=== PATIENT | female | born 1965 | race Caucasian/White ===

== ENCOUNTER 2017-02-03 19:55 | Emergency (ER) | payer BC ==
[2017-02-03 20:49] VITALS: BP 154/73; PULSE 100; RESP 18; TEMP 98
[2017-02-03] MEDS ORDERED: IBUPROFEN 600 MG TAB PO STA (20:49)
[2017-02-03] MEDS ORDERED: DIPH,PERTUS(ACELL)TETVAC-LF 0.5 ML VIAL IM ONE (20:50)
[2017-02-03] MEDS ORDERED: TOPICAL SKIN ADHESIVE 1 EACH AMP TOPICAL ONE (20:52)
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
--- NOTE | 2017-02-03 21:17 | XR ---
Exam: Left tibia and fibula. HISTORY: Pain. 4 views of the left tibia and fibula were obtained. COMPARISON: None FINDINGS: No acute fracture or subluxation is identified. There is no radiopaque foreign body identified. There are no osteolytic or osteoblastic lesions. There is an inferior and posterior calcaneal enthesophyte . Minimal soft tissue swelling anterior to the proximal tibia is noted. IMPRESSION: Soft tissue swelling anterior to the proximal tibia is noted.
== END 2017-02-03 22:08 | disposition home or self-care (01) ==
LOC: EC 19:55
DX: S81.812A Laceration without foreign body, left lower leg, initial encounter (principal); S80.12XA Contusion of left lower leg, initial encounter; Z23 Encounter for immunization; E11.9 Type 2 diabetes mellitus without complications; K21.9 Gastro-esophageal reflux disease without esophagitis; E07.9 Disorder of thyroid, unspecified; Z79.84 Long term (current) use of oral hypoglycemic drugs; Z79.899 Other long term (current) drug therapy; Z88.0 Allergy status to penicillin; Z88.1 Allergy status to other antibiotic agents; Z88.2 Allergy status to sulfonamides; Z91.09 Other allergy status, other than to drugs and biological substances; W22.8XXA Striking against or struck by other objects, initial encounter; Y93.39 Activity, other involving climbing, rappelling and jumping off
CPT/HCPCS: 12001; 90471; 90715; 99283

== ENCOUNTER → 2018-04-08 | Outpatient (CLI) | payer BC ==
[2018-04-08 07:48] LABS: HCT 45.9 % (34.0-46.0); MCH 30.4 pg (25.0-35.0); MCHC 32.6 g/dL (31.0-37.0); Mean Platelet Volume 7.8; Platelet Count 181 k/uL (150-450); RBC 4.93 m/uL (3.80-5.40); RDW 12.8 % (11.5-15.5); WBC 7.7 k/uL (3.8-10.6)
[2018-04-08 07:57] LABS: Partial Thromboplastin Time 24.6 sec (22.0-30.0); Prothrombin Time 9.9 sec (9.0-12.0)
[2018-04-08 08:21] LABS: ALT 25 U/L (9-52); AST 22 U/L (14-36); Albumin 3.8 g/dL (3.5-5.0); Alkaline Phosphatase 62 U/L (38-126); Anion Gap 11 mmol/L; Blood Urea Nitrogen 13 mg/dL (7-17); Calcium 9.2 mg/dL (8.4-10.2); Carbon Dioxide 19 mmol/L (22-30); Chloride 108 mmol/L (98-107); Cholesterol 324 mg/dL (<200); Glucose 162 mg/dL (74-99); HDL Cholesterol 53 mg/dL (40-60); Magnesium 1.7 mg/dL (1.6-2.3); Phosphorus 3.5 mg/dL (2.5-4.5); Potassium 4.1 mmol/L (3.5-5.1); Sodium 138 mmol/L (137-145); Total Bilirubin 0.8 mg/dL (0.2-1.3); Triglycerides 502 mg/dL (<150)
[2018-04-08 16:25] LABS: Iron Saturation 39.12 (12.00-45.00)
[2018-04-08 16:33] LABS: Vitamin D 25 Hydroxy 24.4 ng/mL (30.0-100.0)
[2018-04-08 16:38] LABS: Parathyroid Hormone Intact 37.5 pg/mL (14.0-72.0)
[2018-04-08 16:39] LABS: Folate, Serum >24.0 ng/mL
[2018-04-08 19:58] LABS: Hemoglobin A1C 6.8 % (4.0-6.0)
[2018-04-09 14:27] LABS: Zinc, Serum 79 ug/dL (60-130)
[2018-04-10 06:28] LABS: Vitamin A 70 ug/dL (38-106)
== END | disposition home or self-care (01) ==
LOC: LABWHC1 07:17
PROVIDERS: ATTEND Surgery Plastic and Reconstructive Surgery
DX: E66.01 Morbid (severe) obesity due to excess calories (principal); E21.1 Secondary hyperparathyroidism, not elsewhere classified; E89.1 Postprocedural hypoinsulinemia; D50.9 Iron deficiency anemia, unspecified; K90.9 Intestinal malabsorption, unspecified; E55.9 Vitamin D deficiency, unspecified; K76.9 Liver disease, unspecified; N19 Unspecified kidney failure; K50.90 Crohn's disease, unspecified, without complications
CPT/HCPCS: 36415; 80053; 80061; 82306; 82525; 82607; 82728; 82746; 83036; 83540; 83550; 83735; 83970; 84100; 84134; 84255; 84425; 84443; 84590; 84630; 85027; 85610; 85730

== ENCOUNTER → 2018-04-30 | Outpatient (CLI) | payer BC ==
[2018-04-30 16:14] VITALS: BP 120/65; PULSE 99; RESP 16; TEMP 97.8; BMI 35.3
--- NOTE | 2018-04-30 16:16 | P.PN ---
Subjective Progress Note Date: 04/30/18 04/30/2018 HPI: She comes in fatigued and exhausted. She has lost weight since her last visit 2 weeks. She has much stress in her life. She is on thyroid medications. She is on wearable MVI. She has decreased energy including the gym. No reports of abdominal pain. Her highest was 326 pounds. She reports worsening GERD. ABDOMEN: Panniculitis. Nontender. 5 cm of pannus, 10 - 15 pounds of skin PLAN: 1. Nystatin powder 2. Panniculectomy packet advised 3. Labs reviewed with elevated Selenium and cholesterol panel. 4. Follow-up 3 months, Jul 2018 5. Recommend EGD for worsening GERD. DATE OF SERVICE: 07/07/2015 CHIEF COMPLAINT: Follow-up sleeve gastrectomy. HISTORY OF PRESENT ILLNESS: [place] Kirk is a very pleasant 50-year-old female who had a sleeve gastrectomy now over 2 years ago. Her heaviest in the program was 326 pounds. Her body mass index was 51 for her height of 5 feet 7 inches, Today she comes in weighing 235 pounds. She has lost 91 pounds. Her percent excess weight loss is 52% after 2 years. Since a year ago she has lost another 7 pounds. Her BMI point reduction is 14.1. Current body mass index is 36.9. She is on increased medications whereby she is now taking metformin including cholesterol medications. She reports moderate panniculitis of the abdomen. She does have increased energy. She does have heartburn as well. She has intolerance to meat particularly pork. Now she presents for her approximate 2-year followup. PAST MEDICAL HISTORY: 1. Diabetes type 2. 2. Dyslipidemia. 3. Gastroesophageal reflux disease. 4. Hypothyroidism. 5. Hypertension. 6. Osteoarthritis. PAST SURGICAL HISTORY: 1. Upper endoscopy. 2. Status post sleeve gastrectomy. MEDICATIONS: 1. Metformin. 2. Ambien. 3. Aldactone. 4. Seasonal. 5. Zantac. 6. Victoza. 7. Cytomel. 8. TriCor. 9. Calcium citrate with vitamin D. 10. Lipitor. ALLERGIES: 1. PENICILLIN. 2. SULFA. 3. CIPRO. 4. LEVAQUIN. SOCIAL HISTORY: No active tobacco use. FAMILY HISTORY: Family history of morbid obesity. REVIEW OF SYSTEMS: CONSTITUTIONAL: Heaviest weight of 326 pounds. Highest body mass is 61. He did body weight of 153 pounds. Total weight loss of 91 pounds. Percent excess weight loss of 52% after 2 years. She has lost another 7 pounds in one year. Her BMI point reduction of 14.1. Present body mass index of 36.9. GASTROINTESTINAL: Reports gastroesophageal reflux disease. Has intolerance to pork. No reports of diarrhea or constipation. ENDOCRINE: History of diabetes including thyroid disorder. She reports increase need for hypoglycemic medications as metformin has been added. CARDIOVASCULAR: History of dyslipidemia with increased medication. MUSCULOSKELETAL: No reports of increased joint pain or lower back pain. HEENT: Denies any troubles with vision or hearing. RESPIRATORY: History of obstructive sleep apnea. No reports of pneumonia. NEURO: No reports of headaches or seizures. PSYCHIATRY: No reports of depression or suicidal ideation. PHYSICAL EXAM: VITAL SIGNS: 97.9, 91, 12, 129/63, 5 feet 7 inches, 235 pounds. Body mass index of 36.9. GENERAL: Well-developed, pleasant female in no acute distress. ABDOMEN: Soft, nontender. No palpable incisional hernias. HEENT: No scleral icterus. Extraocular movements grossly intact. Moist buccal mucosa. NECK: Supple without lymphadenopathy. CHEST: Nonlabored respirations. Equal bilateral excursions. CARDIOVASCULAR: Regular rate and rhythm. MUSCULOSKELETAL: No clubbing, cyanosis or edema. NEURO: No focal or lateralizing signs. Labs were reviewed. Platelet count was low at 136. A glucose was elevated at 158. Hemoglobin A1c was 7.4 less than 8.1 from her initial assessment. Triglycerides elevated at 223. Cholesterol elevated at 232. LDL elevated at 133. ASSESSMENT: 1. Morbid obesity due to exogenous chocked intake. 2. Body mass index reduced from 51 to 36.9. 3. Status post sleeve gastrectomy. 4. Diabetes type 2. 5. Hyperdyslipidemia. 6. Obstructive sleep apnea, improved. 7. Hypertension, improved. 8. Gastroesophageal reflux disease, stable. PLAN: 1. After 2 years she has done extremely well still losing weight. Her percent excess weight loss is now 52%. 2. She still reports gastroesophageal reflux disease and may continue with Prilosec indefinitely. 3. Recommended completion of her bariatric metabolic panel. 4. She has done extremely well, whereby follow up at least on a yearly basis.
== END | disposition home or self-care (01) ==
LOC: BARWHC3 15:12
PROVIDERS: ATTEND Surgery Plastic and Reconstructive Surgery
DX: Z09 Encounter for follow-up examination after completed treatment for conditions other than malignant neoplasm (principal); E66.01 Morbid (severe) obesity due to excess calories; G47.33 Obstructive sleep apnea (adult) (pediatric); K21.9 Gastro-esophageal reflux disease without esophagitis; M79.3 Panniculitis, unspecified; R53.83 Other fatigue; R63.4 Abnormal weight loss; E11.9 Type 2 diabetes mellitus without complications; E78.5 Hyperlipidemia, unspecified; E03.9 Hypothyroidism, unspecified; I10 Essential (primary) hypertension; M19.90 Unspecified osteoarthritis, unspecified site; Z98.84 Bariatric surgery status; Z79.84 Long term (current) use of oral hypoglycemic drugs; Z79.899 Other long term (current) drug therapy; Z88.0 Allergy status to penicillin; Z88.2 Allergy status to sulfonamides; Z88.1 Allergy status to other antibiotic agents; Z68.36 Body mass index [BMI] 36.0-36.9, adult
CPT/HCPCS: 99211

== ENCOUNTER → 2018-08-16 | Outpatient (CLI) | payer BC ==
[2018-08-16 17:26] LABS: Progesterone <0.2 ng/mL
== END | disposition home or self-care (01) ==
LOC: LABWHC1 08:58
PROVIDERS: ATTEND Internal Medicine
DX: L65.9 Nonscarring hair loss, unspecified (principal); E03.9 Hypothyroidism, unspecified
CPT/HCPCS: 36415; 82670; 83001; 83002; 84144; 84403; 84443

== ENCOUNTER → 2019-05-14 | Outpatient (CLI) | payer BC ==
--- NOTE | 2019-05-18 10:40 | MM ---
Reason for exam: screening (asymptomatic). Last mammogram was performed 4 years and 9 months ago. History: Patient is nulliparous. Took hormonal contraceptives for 14 years 10 months. Physical Findings: A clinical breast exam by your physician is recommended on an annual basis and results should be correlated with mammographic findings. MG Screening Mammo w CAD Bilateral CC and MLO view(s) were taken. Prior study comparison: August 06, 2014, bilateral MG screening mammo w CAD. September 19, 2012, bilateral digital screening mammo w/CAD. There are scattered fibroglandular densities. No suspicious abnormality. No significant changes when compared with prior studies. ASSESSMENT: Negative, BI-RAD 1 RECOMMENDATION: Routine screening mammogram of both breasts in 1 year.
== END | disposition home or self-care (01) ==
LOC: RADMAMWWP 16:53
PROVIDERS: ATTEND Internal Medicine
DX: Z12.31 Encounter for screening mammogram for malignant neoplasm of breast (principal)
CPT/HCPCS: 77067

== ENCOUNTER → 2020-04-11 | Outpatient (CLI) | payer BC ==
[2020-04-11 11:50] LABS: Basophils % (A) 0 %; Eosinophils % (A) 1 %; HCT 46.6 % (34.0-46.0); HGB 15.2 gm/dL (11.4-16.0); Lymphocytes # (A) 3.3 k/uL (1.0-4.8); Lymphocytes % (A) 38 %; MCH 31.3 pg (25.0-35.0); MCHC 32.7 g/dL (31.0-37.0); MCV 95.6 fL (80.0-100.0); Mean Platelet Volume 10.2; Monocytes # (A) 0.5 k/uL (0-1.0); Monocytes % (A) 5 %; Neutrophils # (A) 4.7 k/uL (1.3-7.7); Neutrophils % (A) 54 %; Platelet Count 135 k/uL (150-450); RBC 4.87 m/uL (3.80-5.40); RDW 12.8 % (11.5-15.5); WBC 8.6 k/uL (3.8-10.6)
== END | disposition home or self-care (01) ==
LOC: LABPAT 10:15
PROVIDERS: ATTEND Obstetrics & Gynecology
DX: Z01.818 Encounter for other preprocedural examination (principal)
CPT/HCPCS: 36415; 85025; 93005

== ENCOUNTER 2020-04-18 06:17 | Day surgery (SDC) | payer BC, OTHER ==
[2020-04-12 15:32] VITALS: BMI 37.5
[~2020-04-18 06:17] MED LIST: DEXAMETHASONE SOD PHOSPHATE 10 MG/ML 1 ML VIAL IV ONE; HYDROmorphone 0.5 MG/0.5 ML SYRINGE IVP PRN; LACTATED RINGERS 1,000 ML IV SCH; MIDAZOLAM 2 MG/2 ML VIAL IV PRN; ONDANSETRON 4 MG/2 ML VIAL IVP ONE; Pre Op ABX Message 1 EACH MISC MISCELLANE ONE; SCOPOLAMINE 1.5MG/72HR PATCH TRANSDERM ONE
[2020-04-18 07:05] LABS: Glucose,Whole Blood 157 mg/dL (75-99)
[2020-04-18 07:18] LABS: African American GFR (CKD) >90 (>60 ml/min/1.73 sqM); Anion Gap 5 mmol/L; Blood Urea Nitrogen 12 mg/dL (7-17); Calcium 8.8 mg/dL (8.4-10.2); Carbon Dioxide 24 mmol/L (22-30); Chloride 106 mmol/L (98-107); Glucose 168 mg/dL (74-99); Non-African American GFR(CKD) >90 (>60 ml/min/1.73 sqM); Sodium 135 mmol/L (137-145)
[2020-04-18 07:37] LABS: Potassium 4.3 mmol/L (3.5-5.1)
[2020-04-18] MEDS ORDERED: SUCCINYLCHOLINE CHLORIDE 100 MG/5 ML SYR IV ONE (07:37)
[2020-04-18] MEDS ORDERED: LIDOCAINE 1% INJ 10MG/ML (20 ML MDV) ONE (07:37)
[2020-04-18] MEDS ORDERED: PROPOFOL 10 MG/ML 20 ML VIAL IV ONE (07:37)
[2020-04-18] MEDS ORDERED: fentaNYL (PF) 50 MCG/ML 2 ML AMP ONE (07:37)
[2020-04-18] MEDS ORDERED: MIDAZOLAM 2 MG/2 ML VIAL ONE (07:37)
--- NOTE | 2020-04-18 08:18 | P.HPOB ---
History of Present Illness H&P Date: 04/18/20 Chief Complaint: Dysfunctional uterine bleeding [place] is a 54-year-old female with heavy vaginal bleeding. She relates that she has bleeding every month for approximately 10 days and is significantly impacting her lifestyle. Ultrasound did not reveal any gross findings. We did discuss at length risks of separate procedures with a D&C and hysteroscopy versus D&C with hysteroscopy NovaSure. She would prefer to when have one surgery she is very concerned that anesthetic and with her multiple medical ALLERGIES a decision to move forward with an ablation on this procedure was done. She is aware that there is some risk of hyperplasia and/or cancer that may require surgical intervention down the road, but she is adamant that she would like NovaSure done at the same time as her D&C. Other risks and benefits were reviewed with patient in detail and all questions were answered for her prior to proceeding to the operative room. Past Medical History Past Medical History: Diabetes Mellitus, GERD/Reflux, Pneumonia, Thyroid Disor ortega Additional Past Medical History / Comment(s): Hepatitis with Johnson previously .RETAINS FLUID IN LEGS AND ANKLES , History of Any Multi-Drug Resistant Organisms: None Reported Past Surgical History: Bariatric Surgery, Cholecystectomy, Tonsillectomy Additional Past Surgical History / Comment(s): Sleeve 06/08/13. Colonoscopy , laparoscopy, D&C. Past Anesthesia/Blood Transfusion Reactions: Motion Sickness, Postoperative Nausea & Vomiting (PONV) Smoking Status: Never smoker - Past Family History Mother Family Medical History: No Reported History Medications and Allergies Home Medications Medication Instructions Recorded Confirmed Type Spironolactone [Aldactone] 25 mg PO DAILY #30 tablet 03/11/14 04/18/20 Rx Dapagliflozin Propanediol [Farxiga] 5 mg PO DAILY 05/06/18 04/18/20 History Pravastatin Sodium [Pravachol] 20 mg PO DAILY 04/12/20 04/18/20 History RX: Nystatin 100,000 Unit/gm Powd 1 applic TOPICAL BID PRN 04/12/20 04/18/20 History [Mycostatin Powder] Semaglutide [Ozempic] 1 mg SQ MORIN 04/12/20 04/18/20 History Thyroid,Pork [Sugar Mill Worker Thyroid] 30 mg PO DAILY 04/12/20 04/18/20 History clonazePAM [KlonoPIN] 1 mg PO HS 04/12/20 04/18/20 History Allergies Allergy/AdvReac Type Severity Reaction Status Date / Time amoxicillin [Amoxicillin] Allergy Swelling Verified 04/18/20 06:44 ciprofloxacin [From Cipro] Allergy Anaphylaxis Verified 04/18/20 06:44 ciprofloxacin HCl Allergy Anaphylaxis Verified 04/18/20 06:44 [From Cipro] Penicillins Allergy Swelling Verified 04/18/20 06:44 Sulfa (Sulfonamide Allergy Rash/Hives Verified 04/18/20 06:44 Antibiotics) levofloxacin [From Levaquin] AdvReac Severe Anaphylaxis Verified 04/18/20 06:44 mold Allergy Cough Uncoded 04/18/20 06:44 Exam Osteopathic Statement: *. No significant issues noted on an osteopathic structural exam other than those noted in the History and Physical/Consult. Vital Signs Temp Pulse Resp BP Pulse Ox 04/18/20 06:51 98.2 F 86 16 122/61 96 Intake and Output 04/17/20 04/18/20 04/18/20 22:59 06:59 14:59 Intake Total 300 Output Total 3 Balance 297 Intake: IV 300 Output: Estimated Blood Loss 3 Other: Weight 111.357 kg - OBG Physical Exam Breast: both: normal (no masses) Abdomen: bowel sounds normal, no diffuse tenderness, no bruit present, no guarding noted, no hepatomegaly, no splenomegaly, no mass Vulva: both: normal Vagina: normal moisture, no discharge Cervix: no lesion, no discharge Uterus: normal size, normal contour Adnexa: both: normal Anus/Rectum: normal perianal skin, no rectal mass, no hemorrhoids, heme negative Results Result Diagrams: 04/18/20 07:02 Abnormal Lab Results - Last 24 Hours (Table) 04/18/20 04/18/20 Range/Units 07:00 07:02 Sodium 135 L (137-145) mmol/L Glucose 168 H (74-99) mg/dL POC Glucose (mg/dL) 157 H (75-99) mg/dL
--- NOTE | 2020-04-18 08:20 | P.OP ---
Date of Procedure: 04/18/20 Preoperative Diagnosis: Dysfunctional uterine bleeding Postoperative Diagnosis: Same Procedure(s) Performed: D&C with hysteroscopy and NovaSure Anesthesia: BRITTNI Surgeon: Bashir Nguyen Estimated Blood Loss (ml): 3 Pathology: other (Uterine curettings) Condition: stable Disposition: same day Operative Findings: Pathology pending Description of Procedure: Patient was taken to the operating suite where a general anesthetic was found be adequate. She was prepped and draped in normal sterile fashion and placed in the dorsal lithotomy position. Initially a weighted speculum was inserted in vagina and anterior lip of cervix identified and grasped with a Allis clamp. Once this was completed cervix was fully dilated. Camera was then inserted. Initially it appeared that she had a septated uterus, however after curettage was performed that septation did not appear to be present in the back wall of the uterus was clearly identified. Therefore once tissue was collected and sent to pathology. NovaSure system was inserted. With a length of 4 and a width of 2.5 it passes patency test was enabled and didn't burn for 67 seconds. At conclusion the burn camera was reinserted following removal of the NovaSure system good burn was noted. All incidents were then removed. Sponge, lap, needle counts were all correct 2. Patient was then taken to the recovery room in stable and satisfactory condition. Plan - Discharge Summary Discharge Rx Participant: Yes New Discharge Prescriptions: No Action Spironolactone [Aldactone] 25 mg PO DAILY #30 tablet Dapagliflozin Propanediol [Farxiga] 5 mg PO DAILY RX: Nystatin 100,000 Unit/gm Powd [Mycostatin Powder] 1 applic TOPICAL BID PRN PRN Reason: Rash clonazePAM [KlonoPIN] 1 mg PO HS Pravastatin Sodium [Pravachol] 20 mg PO DAILY Thyroid,Pork [Child Care Aide Thyroid] 30 mg PO DAILY Semaglutide [Ozempic] 1 mg SQ MORIN Discharge Medication List Spironolactone [Aldactone] 25 mg PO DAILY #30 tablet 03/11/14 [Rx] Dapagliflozin Propanediol [Farxiga] 5 mg PO DAILY 05/06/18 [History] Pravastatin Sodium [Pravachol] 20 mg PO DAILY 04/12/20 [History] RX: Nystatin 100,000 Unit/gm Powd [Mycostatin Powder] 1 applic TOPICAL BID PRN 04/12/20 [History] Semaglutide [Ozempic] 1 mg SQ MORIN 04/12/20 [History] Thyroid,Pork [Child Care Aide Thyroid] 30 mg PO DAILY 04/12/20 [History] clonazePAM [KlonoPIN] 1 mg PO HS 04/12/20 [History]
[2020-04-18 08:21] VITALS: TEMP 97.9
[2020-04-18 08:31] LABS: Glucose,Whole Blood 206 mg/dL (75-99)
[2020-04-18 08:33] VITALS: RESP 16
[2020-04-18 09:59] VITALS: BP 110/72; PULSE 72
== END 2020-04-18 10:29 | disposition home or self-care (01) ==
LOC: OR 06:17
PROVIDERS: ATTEND Obstetrics & Gynecology
DX: N93.8 Other specified abnormal uterine and vaginal bleeding (principal); N92.0 Excessive and frequent menstruation with regular cycle; E11.9 Type 2 diabetes mellitus without complications; K21.9 Gastro-esophageal reflux disease without esophagitis; Z87.01 Personal history of pneumonia (recurrent); E78.5 Hyperlipidemia, unspecified; E07.9 Disorder of thyroid, unspecified; Z86.19 Personal history of other infectious and parasitic diseases; Z86.61 Personal history of infections of the central nervous system; Z98.84 Bariatric surgery status; Z90.49 Acquired absence of other specified parts of digestive tract; Z98.890 Other specified postprocedural states; Z79.890 Hormone replacement therapy; Z79.84 Long term (current) use of oral hypoglycemic drugs; Z79.899 Other long term (current) drug therapy; Z88.1 Allergy status to other antibiotic agents; Z88.0 Allergy status to penicillin; Z88.2 Allergy status to sulfonamides
CPT/HCPCS: 81025; 88305; 80048; 58563; J2250; J1100; J2405; J2001; J3010; J0330; J2704; J1170

== ENCOUNTER → 2020-11-29 | Outpatient (CLI) | payer BC ==
[2020-11-29 11:06] LABS: Basophils # (A) 0.01 X 10*3/uL (0.00-0.10); Basophils % (A) 0.1 %; Eosinophils % (A) 1.3 %; HCT 45.3 % (37.2-46.3); Lymphocytes # (A) 3.71 X 10*3/uL (0.90-5.00); Lymphocytes % (A) 46.4 %; MCH 30.5 pg (27.0-32.0); MCHC 33.1 g/dL (32.0-37.0); MCV 92.3 fL (80.0-97.0); Mean Platelet Volume 12.6 fL (9.5-12.2); Monocytes # (A) 0.61 X 10*3/uL (0.20-1.00); Monocytes % (A) 7.6 %; Neutrophils # (A) 3.55 X 10*3/uL (1.80-7.70); Neutrophils % (A) 44.5 %; Platelet Count 118 X 10*3/uL (140-440); RBC 4.91 X 10*6/uL (4.10-5.20); RDW 11.9 % (11.5-14.5); WBC 7.99 X 10*3/uL (4.50-10.00)
[2020-11-29 12:14] LABS: ALT 30 U/L (8-44); AST 22 U/L (13-35); Albumin/Globulin Ratio 1.75 (1.60-3.17); Alkaline Phosphatase 77 U/L (41-126); C Reactive Protein <0.4 mg/dL (0.0-0.8); Calcium 9.2 mg/dL (8.7-10.3); Carbon Dioxide 26.1 mmol/L (21.6-31.8); Chloride 105 mmol/L (96-109); Cholesterol 289 mg/dL (0-200); Globulin 2.4 g/dL (1.6-3.3); Glucose 186 mg/dL (70-110); LDL Cholesterol,Calculated 182.4 mg/dL (0.0-131.0); Non-African American GFR(CKD) 72.5 (60.0-200.0); Potassium 4.5 mmol/L (3.5-5.5); Rheumatoid Factor, Qnt 8 IU/mL (0-15); Sodium 140 mmol/L (135-145); Total Bilirubin 0.8 mg/dL (0.3-1.2); Total Protein 6.6 g/dL (6.2-8.2); Uric Acid 5.4 mg/dL (2.9-7.7)
[2020-11-29 18:00] LABS: Erythrocyte Sedimentation Rate 11 mm/Hr (0-30)
[2020-11-29 20:13] LABS: Cyclic Citrull Pep IgG Unit <0.5 U/mL; Cyclic Citrullinated Pep IgG NEGATIVE (NEGATIVE)
[2020-12-07 10:59] LABS: ANA Pattern Speckled
== END | disposition home or self-care (01) ==
LOC: LABWHC1 07:01
PROVIDERS: ATTEND Internal Medicine
DX: E78.5 Hyperlipidemia, unspecified (principal); E55.9 Vitamin D deficiency, unspecified; E03.9 Hypothyroidism, unspecified; M25.50 Pain in unspecified joint
CPT/HCPCS: 36415; 80053; 80061; 82306; 84439; 84443; 84481; 84550; 85025; 85652; 86038; 86039; 86140; 86200; 86431

== ENCOUNTER → 2022-03-09 | Outpatient (CLI) | payer BC ==
--- NOTE | 2022-03-10 04:13 | MR ---
EXAMINATION TYPE: MR knee RT wo con DATE OF EXAM: 03/09/2022 COMPARISON: None HISTORY: Right inner knee pain, painful kneecap, and swelling for 2 months due to slipping Multiplanar multiecho imaging of the right knee with no contrast. The anterior and posterior cruciate ligaments are intact. There is mild knee joint effusion. The subhash ateral ligaments are intact. Medial and lateral menisci appear intact. No evidence of focal bone dest ruction. There is a 7 mm degenerative cyst in the subchondral superior patella. No evidence of a fracture. Femoral and tibial condyles appear intact. IMPRESSION: No evidence of meniscal or ligamentous tear. There is a mild knee joint effusion. Small degenerative cyst in the patella. There is some thinning of articular cartilage of the patella.
== END | disposition home or self-care (01) ==
LOC: RADMRIMAIN 18:56
PROVIDERS: ATTEND Orthopaedic Surgery
DX: M17.11 Unilateral primary osteoarthritis, right knee (principal)

== ENCOUNTER → 2022-03-22 | Outpatient (CLI) | payer BC ==
[2022-03-23 00:13] LABS: Basophils # (A) 0.01 X 10*3/uL (0.00-0.10); Basophils % (A) 0.1 %; Eosinophils # (A) 0.11 X 10*3/uL (0.04-0.35); Eosinophils % (A) 1.3 %; HCT 45.5 % (37.2-46.3); HGB 14.7 g/dL (12.0-15.0); Immature Grans, Automated 0.2 %; Immature Platelet Fraction 20.8 % (1.1-6.1); Lymphocytes # (A) 3.19 X 10*3/uL (0.90-5.00); Lymphocytes % (A) 37.5 %; MCH 30.1 pg (27.0-32.0); MCHC 32.3 g/dL (32.0-37.0); Mean Platelet Volume 13.2 fL (9.5-12.2); Monocytes # (A) 0.63 X 10*3/uL (0.20-1.00); Monocytes % (A) 7.4 %; NRBC Per 100 WBC 0 /100 WBCS (0.0-0.0); Neutrophils # (A) 4.55 X 10*3/uL (1.80-7.70); Neutrophils % (A) 53.5 %; Platelet Count 91 X 10*3/uL (140-440); RBC 4.89 X 10*6/uL (4.10-5.20); RDW 12.4 % (11.5-14.5); WBC 8.51 X 10*3/uL (4.50-10.00)
== END | disposition home or self-care (01) ==
LOC: LABWHC1 15:43
PROVIDERS: ATTEND Family Medicine
DX: E11.9 Type 2 diabetes mellitus without complications (principal); D69.6 Thrombocytopenia, unspecified
CPT/HCPCS: 36415; 83036; 85025

== ENCOUNTER → 2022-04-10 | Outpatient (CLI) | payer BC ==
[2022-04-10 15:44] LABS: Partial Thromboplastin Time 24.6 sec (22.0-30.0); Prothrombin Time 10.7 sec (9.0-12.0)
[2022-04-11 00:56] LABS: C-Peptide 6.25 ng/mL (0.81-3.85)
[2022-04-11 01:39] LABS: African American GFR (CKD) 89.5 (60.0-200.0); Albumin 4.5 g/dL (3.8-4.9); Albumin/Globulin Ratio 1.97 (1.60-3.17); Anion Gap 9.1 mmol/L (10.00-18.00); BUN/Creat Ratio 17.79 Ratio (12.00-20.00); Blood Urea Nitrogen 15.1 mg/dL (9.0-27.0); Calcium 9.4 mg/dL (8.7-10.3); Carbon Dioxide 26.9 mmol/L (20.0-27.5); Globulin 2.3 g/dL (1.6-3.3); Non-African American GFR(CKD) 77.2 (60.0-200.0); Potassium 4.6 mmol/L (3.5-5.5); Total Bilirubin 0.3 mg/dL (0.30-1.20); Total Protein 6.7 g/dL (6.2-8.2)
== END | disposition home or self-care (01) ==
LOC: LABWHC1 14:59
PROVIDERS: ATTEND Family Medicine
DX: E11.9 Type 2 diabetes mellitus without complications (principal); D69.59 Other secondary thrombocytopenia
CPT/HCPCS: 36415; 80053; 82977; 84681; 85610; 85652; 85730

== ENCOUNTER → 2022-04-12 | Outpatient (CLI) | payer BC ==
--- NOTE | 2022-04-12 10:15 | US ---
EXAMINATION TYPE: US liver DATE OF EXAM: 04/12/2022 COMPARISON: CT August 03, 2015 CLINICAL HISTORY: D69.59 OTHER SECONDARY THROMBOCYTOPENIA. Tenderness RUQ, cholecystectomy, history o f bariatric sleeve TECHNIQUE: Multiple sonographic images of the right upper quadrant are obtained. FINDINGS: EXAM MEASUREMENTS: Liver Length: 13.0 cm Gallbladder Wall: Surgically absent CBD: 0.5 cm Right Kidney: 10.7 x 6.0 x 5.4 cm PRODUCT CONTROLLER NOTES:*technical limitations due to patient's body habitus and large amount of overlying bowl Pancreas: Obscured by bowel gas Liver: limited evaluation, attenuating, heterogeneous Gallbladder: surgically absent Evidence for sonographic Chavarria's sign: no CBD: limited evaluation Right Kidney: cystic area = 2.6 x 2.1 x 2.1cm Suboptimal evaluation of pancreas on initial images. Visualized liver is heterogeneously hyperechoic. Evaluation for focal masses suboptimal due to the heterogeneity. Gallbladder surgically absent. No b iliary dilatation. Incidental near 2.0 cm simple appearing thin-walled cyst in the right kidney is ma rked by technologist lower pole level. No right-sided hydronephrosis. IMPRESSION: Fatty infiltrative hepatocellular disease redemonstrated. Liver size remains normal.
== END | disposition home or self-care (01) ==
LOC: RADUSWWP 09:28
PROVIDERS: ATTEND Family Medicine
DX: D69.59 Other secondary thrombocytopenia (principal); K76.0 Fatty (change of) liver, not elsewhere classified
CPT/HCPCS: 76705

== ENCOUNTER → 2022-05-11 | Outpatient (CLI) | payer BC ==
--- NOTE | 2022-05-11 08:16 | US ---
EXAMINATION TYPE: US abdomen complete DATE OF EXAM: 05/11/2022 COMPARISON: 04/12/2022 CLINICAL HISTORY: D69.59 THROMBOCYTOPENIA. TECHNIQUE: Multiple sonographic images of the abdomen are obtained. FINDINGS: EXAM MEASUREMENTS: Liver Length: 13.3 cm Gallbladder Wall: Surgically absent CBD: 0.20 cm Spleen: 11.4 cm Right Kidney: 10.5 x 4.7 x 5.3 cm Left Kidney: 11.7 x 5.7 x 5.5 cm Pancreas: Tail obscured by overlying bowel gas Liver: Echogenic, slightly heterogeneous Gallbladder: Surgically absent Evidence for sonographic Chavarria's sign: No CBD: wnl Spleen: wnl Right Kidney: Anechoic lesion inferior pole 1.6 x 1.7 x 1.8 cm Left Kidney: wnl Upper IVC: wnl Abd Aorta: wnl The intrahepatic portion of the IVC and proximal abdominal aorta are within normal limits. Common b ile duct is unremarkable. The visualized portions of the pancreas are homogenous. The spleen is unr emarkable. Kidneys are symmetric and free of hydronephrosis. IMPRESSION: 1. No evidence of acute intra-abdominal process. 2. Hepatocellular disease commonly relating to hepatic steatosis. 3. Right renal cyst.
== END | disposition home or self-care (01) ==
LOC: RADUSWWP 07:24
PROVIDERS: ATTEND Internal Medicine Hematology & Oncology
DX: D69.59 Other secondary thrombocytopenia (principal); N28.1 Cyst of kidney, acquired; K76.89 Other specified diseases of liver
CPT/HCPCS: 76700

== ENCOUNTER → 2023-08-13 | Outpatient (CLI) | payer OTHER ==
--- NOTE | 2023-08-14 20:02 | MM ---
Reason for Exam: Screening (asymptomatic). Last mammogram was performed 1 year(s) and 6 month(s) ago. Patient History: Menarche at age 12. Patient has no children. Left ovary removed at age 57. Right ovary removed at age 57. Hysterectomy at age 57. Postmenopausal. Currently using Estrogen, starting at age 57. Hormonal Contraceptives for 14 years, 10 months. Paternal cousin had ovarian cancer. Risk Values: Carmella 5 year model risk: 1.6%. NCI Lifetime model risk: 9.5%. Prior Study Comparison: 08/06/2014 Bilateral Screening Mammogram, [facility]. 05/14/2019 Bilateral Screening Mammogram, [facility]. 02/13/2022 Bilateral MG screening mammo w CAD, [facility]. Tissue Density: There are scattered fibroglandular densities. Findings: Analyzed By CAD. There is no suspicious group of microcalcifications or new suspicious mass in either breast. Overall Assessment: Negative, BI-RAD 1 Management: Screening Mammogram of both breasts in 1 year. . Patient should continue monthly self-breast exams. A clinical breast exam by your physician is recommended on an annual basis. This exam should not preclude additional follow-up of suspicious palpable abnormalities. Note on Carmella scores and lifetime risk: 1. A Carmella score greater than 3% is considered moderate risk. If this is the case, consider specialist referral to assess eligibility for a risk reducing agent. 2. If overall lifetime risk for the development of breast cancer is 20% or higher, the patient may qualify for future screening with alternating mammogram and breast MRI. Electronically signed and approved by: Jorge Luis Prasad M.D. Radiologist
== END | disposition home or self-care (01) ==
LOC: RADMAMWWP 06:53
PROVIDERS: ATTEND Family Medicine
DX: Z12.31 Encounter for screening mammogram for malignant neoplasm of breast (principal); Z78.0 Asymptomatic menopausal state
CPT/HCPCS: 77063; 77067

== ENCOUNTER → 2024-05-30 | Outpatient (CLI) | payer OTHER ==
[2024-05-30 14:02] LABS: Chol/HDL Ratio 3.27 Ratio; Creatine Kinase 61 U/L (26-186)
[2024-05-30 14:03] LABS: ALT 19 U/L (8-44); AST 20 U/L (13-35); Albumin 4.4 g/dL (3.8-4.9); Alkaline Phosphatase 66 U/L (41-126); BUN/Creat Ratio 23.75 Ratio (12.00-20.00); Calcium 9.5 mg/dL (8.7-10.3); Carbon Dioxide 25.2 mmol/L (21.6-31.8); Chloride 104 mmol/L (96-109); Globulin 2.2 g/dL (1.6-3.3); Glucose 105 mg/dL (70-110); Potassium 4.9 mmol/L (3.5-5.5); Sodium 141 mmol/L (135-145); T4, Free (Free Thyroxine) 1.24 ng/dL (0.80-1.80); Total Bilirubin 0.6 mg/dL (0.3-1.2); Total Protein 6.6 g/dL (6.2-8.2)
[2024-05-30 15:18] LABS: Basophils # (A) 0.01 X 10*3/uL (0.00-0.10); Basophils % (A) 0.1 %; Eosinophils # (A) 0.13 X 10*3/uL (0.04-0.35); Eosinophils % (A) 1.8 %; HCT 45.3 % (37.2-46.3); HGB 14.8 g/dL (12.0-15.0); Lymphocytes # (A) 2.87 X 10*3/uL (0.90-5.00); Lymphocytes % (A) 40.1 %; MCH 30.6 pg (27.0-32.0); MCHC 32.7 g/dL (32.0-37.0); MCV 93.6 FL (80.0-97.0); Mean Platelet Volume 13.1 FL (9.5-12.2); Monocytes # (A) 0.56 X 10*3/uL (0.20-1.00); Monocytes % (A) 7.8 %; NRBC Per 100 WBC 0 X 10*3/uL (0.00-0.01); Neutrophils # (A) 3.57 X 10*3/uL (1.80-7.70); Neutrophils % (A) 49.9 %; RBC 4.84 X 10*6/uL (4.10-5.20); RDW 11.9 % (11.5-14.5); WBC 7.16 X 10*3/uL (4.50-10.00)
== END | disposition home or self-care (01) ==
LOC: LABWHC1 08:33
PROVIDERS: ATTEND Family Medicine
DX: E11.9 Type 2 diabetes mellitus without complications (principal); E03.9 Hypothyroidism, unspecified; E78.5 Hyperlipidemia, unspecified; E55.9 Vitamin D deficiency, unspecified; M35.9 Systemic involvement of connective tissue, unspecified; Z73.3 Stress, not elsewhere classified
CPT/HCPCS: 36415; 80053; 80061; 82306; 82533; 82550; 84439; 84443; 84481; 85025